=== PATIENT | female | born 1960 | race Caucasian/White ===

== ENCOUNTER 2017-06-12 10:22 | Emergency (ER) | payer OTHER ==
[2017-06-12] MEDS ORDERED: IBUPROFEN 200 MG TAB PO ONE (11:30)
--- NOTE | 2017-06-12 11:51 | ED.PDOC ---
History of Present Illness - General Chief Complaint: Abdominal Pain Stated Complaint: abdominal pain Time Seen by Provider: 06/12/17 11:42 Information Source: patient, RN notes reviewed - History of Present Illness Initial Comments: ABDOMINAL PAIN ONSET TWELVE DAYS, SEEMS TO BE MORE ON THE RIGHT SIDE, LOWER QUADRANT. SHE ALSO VOICES THAT 2 WEEKS AGO SHE WAS SEEN BY HER DOCTOR BECAUSE OF LLQ PAIN AND PLACED ON CIPRO. ON F/U WITH HER DOCTOR SHE WAS NOTED TO BE HYPERTENSIVE AND THEN WAS STARTED ON LISINOPRIL. NOW SHE IS ALSO RUNNING A FEVER. Abdominal Pain Onset Location: RLQ Pain Radiation: no radiation Quality: severe Timing/Duration: days - 12 Improving Factors: nothing Worsening Factors: nothing Associated Symptoms: fever/chills Review of Systems - Review of Systems Constitutional: States: chills, fever EENTM: States: no symptoms reported Respiratory: States: no symptoms reported Cardiology: States: no symptoms reported Gastrointestinal/Abdominal: States: abdominal pain, nausea Genitourinary: States: no symptoms reported Musculoskeletal: States: no symptoms reported Skin: States: no symptoms reported Neurological: States: no symptoms reported Endocrine: States: no symptoms reported Hematologic/Lymphatic: States: no symptoms reported Past Medical History (General) - Patient Medical History Hx Seizures: No Hx Stroke: No Hx of COPD: No Hx Cardiac Disorders: No Hx Congestive Heart Failure: No Hx Pacemaker: No Hx Hypertension: Yes Hx Thyroid Disease: No Hx Diabetes: No Hx Gastroesophageal Reflux: No Surgical History: no surgical history Family Medical History - Family History Mother Family History: No Known Physical Exam - Physical Exam General Appearance: Alert, Obvious distress, Well Developed, Well Groomed, Well Hydrated, Well Nourished Eyes, Ears, Nose, Throat Exam: PERRL/EOMI, normal ENT inspection Neck: non-tender, full range of motion, supple, normal inspection Respiratory: chest non-tender, lungs clear, normal breath sounds, no respiratory distress, no accessory muscle use Cardiovascular/Chest: normal peripheral pulses, regular rate, rhythm, no edema, no gallop, no JVD Gastrointestinal/Abdominal: normal bowel sounds, distended, guarding - TO THE RLQ, rebound Rectal Exam: deferred Back Exam: normal inspection Extremity: normal range of motion, non-tender, normal inspection, no pedal edema , no calf tenderness Neurologic: alert, normal mood/affect Skin Exam: normal color Lymphatic: no adenopathy Progress - Results/Orders Results/Orders: CT ABDOMEN AND PELVIS WITH A 16.5 X 12 X 15 CM MASS ORIGINATING FROM THE LEFT OVARY. WILL PERFORM A PELVIC SONOGRAM CASE DISCUSSED WITH DR. PENDLETON-COMPUTER SYSTEMS SECURITY ADMINISTRATOR. WILL F/U WITH DR. STERN THURSDAY Departure - Departure Clinical Impression: Ovarian cyst Qualifiers: Laterality: left Qualified Code(s): N83.202 - Unspecified ovarian cyst, left side Abdominal pain Qualifiers: Abdominal location: right lower quadrant Qualified Code(s): R10.31 - Right lower quadrant pain Time of Disposition: 16:07 Disposition: Discharge to Home or Self Care Condition: Fair Departure Forms: ED Discharge - Pt. Copy, Patient Portal Self Enrollment Instructions: DI for Abdominal Pain-Adult Referrals: SHILPI AMAYA [Primary Care Provider] - 1-2 Weeks Andrea Pendleton MD [Referring] - 1-2 Weeks Prescriptions: Tramadol HCl 50 mg PO Q4HR #30 tab Home Medications: Ambulatory Orders Tramadol HCl 50 mg PO Q4HR #30 tab 06/12/17
[2017-06-12 13:46] VITALS: TEMP 99.7
--- NOTE | 2017-06-12 14:26 | CT ---
EXAM DESCRIPTION: Abdomen/Pelvis w/Contrast CLINICAL HISTORY: RLQ PAIN, ELEVATED WBC COMPARISON: None TECHNIQUE: Postcontrast multidetector CT imaging of the abdomen and pelvis was performed. Multiplanar reconstructions were generated. This exam was performed according to our departmental dose-optimization program which includes automated exposure control, adjustment of the mA and/or kV according to patient size and/or use of iterative reconstruction technique. FINDINGS: A mostly circumscribed large 16.5 x 12.0 x 15.5 cm cystic-type mass of the pelviss is present and suspected to originate from the left ovary. The cystic mass has elevated central attenuation of approximately 30 Hounsfield units. Cystic mass also abuts the right ovary. The cystic mass exhibits no internal thickened septation or nodularity. Trace amount of nonspecific free peritoneal fluid is seen extending into the subdiaphragmatic recesses bilaterally. No peritoneal implants are demonstrated. No omental masses/caking. No lymphadenopathy. Anteverted uterus shows a thickened endometrial stripe of approximately 1.3 cm. Mild dependent changes seen in the lung bases. No focal liver lesions. No intrahepatic ductal dilatation. Gallbladder is normal in appearance. Pancreas is normal in appearance. Spleen is unremarkable in appearance. Bilateral adrenal glands are normal in appearance. Symmetric renal cortical enhancement is seen. No gastrointestinal obstruction or inflammation is demonstrated. No aggressive lytic or blastic osseous lesions are present. IMPRESSION: Large 16.5 x 2.0 x 15.5 cm cystic mass believed to originate from the left ovary. This mass is mostly hyperattenuating suspicious for proteinaceous fluid and/or less likely blood products. No internal thickened septation or nodularity is seen to suggest aggressive neoplastic disease. Dedicated pelvic ultrasound both transabdominal and transvaginal can further assess. Broad differential ranging from benign serous or mucinous cystadenoma to ovarian torsion to unlikely endometrioma considering the patient's age. Correlate with CA-125 level. Trace nonspecific peritoneal ascites. No peritoneal studding/implants or omental caking. 1.3 cm endometrial stripe thickness. Correlate with menopausal status. Electronically signed by: Jerod Hudson MD 06/12/2017 2:25 PM [employer]
[2017-06-12 16:23] VITALS: BP 169/100; O2SAT 98
== END 2017-06-12 16:48 | disposition home or self-care (01) ==
LOC: ER 10:22
DX: N83.202 Unspecified ovarian cyst, left side (principal); I10 Essential (primary) hypertension

== ENCOUNTER → 2017-07-27 | Outpatient (CLI) | payer OTHER | LOC: LAB.O 14:10 | PROVIDERS: ATTEND Obstetrics & Gynecology | DX: D49.59 Neoplasm of unspecified behavior of other genitourinary organ (principal) ==